=== PATIENT | female | born 1980 | race African-American/Black ===

== ENCOUNTER 2020-07-20 13:37 | Outpatient (REF) | payer OTHER, SELFPAY | END 2020-07-20 13:38 | disposition home or self-care (01) | LOC: HO.LAB 13:37 | PROVIDERS: Visit Provider Internal Medicine | DX: Z20.822 Contact with and (suspected) exposure to COVID-19 (principal) | CPT/HCPCS: C9803; U0003; U0005 ==

== ENCOUNTER 2023-03-03 08:31 | Emergency (ER) | payer OTHER, SELFPAY ==
[2023-03-03 08:37] VITALS: BP 183/118; PULSE 97; RESP 20; TEMP 36.3; O2SAT 98; BMI 29.3
[2023-03-03 11:49] LABS: Appearance Urine Cloudy; Color Urine Yellow; Glucose Urine UA Negative (Negative); Leukocyte Esterase Urine Trace (Negative); Nitrite Urine Negative (Negative); Specific Gravity - Urine 1.025 (1.005-1.025); UMIC TRIGGER UACC YES; Urine Blood Negative (Negative); Urine Ketones Negative (Negative); Urine Protein Trace mg/dL (Neg-Trace)
[2023-03-03 12:06] LABS: Bacteria Urine None Seen (None Seen); RBC Urine 0-2 /HPF (0-2); UACC Culture Trigger YES
--- NOTE | 2023-03-03 12:42 | ED_ITS ---
HPI - General Adult General Chief complaint: General Medical Stated complaint: many issues will tell doctor Time Seen by Provider: 03/03/23 11:15 History of Present Illness HPI narrative: Patient with 2 complaints, 1st complaint is 2 days of blisters in mouth that make it painful to eat, she is able to drink easily, there are no other accompanying symptoms there is no sore throat no runny nose no cough no fever She also complains of several days of dysuria meaning frequent urination and some discomfort suprapubic with urination, denies any flank pain, denies any nausea or vomiting denies any fever Related Data Previous Rx's Medication Instructions Recorded acetaminophen 500 mg tablet 1,000 mg (2 x 500 mg) PO QID PRN 03/03/23 pain #30 tabs dyclonine 2 mg lozenges 2 mg mucous membrane Q1H PRN mouth 03/03/23 pain #18 ea lidocaine HCl 2 % mucosal solution 5 ml mucous membrane QID PRN mouth 03/03/23 (Lidocaine Viscous) pain #100 mL nitrofurantoin 100 mg PO Q12H 5 days #10 caps 03/03/23 monohydrate/macrocrystals 100 mg capsule (Macrobid) oxycodone 5 mg tablet 5 mg PO Q6H PRN pain #7 tabs 03/03/23 phenazopyridine 200 mg tablet 200 mg PO TID Discomfort with 03/03/23 (Pyridium) urination 6 doses #6 tabs Allergies Allergy/AdvReac Type Severity Reaction Status Date / Time No Known Allergies Allergy Unverified 12/02/19 19:15 [No Known Allergies*] [facility] Past Medical History Source: nursing notes reviewed Social History Social History Advance Directives: No Advance Directives Information Provided: No Physical Exam ED Vital Signs: Vital Signs - 24 hr 03/03/23 08:37 03/03/23 12:57 Temperature 97.3 F 98.2 F Pulse Rate 97 94 Respiratory Rate 20 18 Blood Pressure 183/118 H 214/118 H Pulse Oximetry 98 100 Oxygen Delivery Method Room Air Room Air BMI result Body Mass Index 29.3 General appearance no acute distress, no respiratory distress speaking full sentences no drooling Eyes no redness or discharge The sinuses are not congested or tender The pharynx is clear without redness swelling or exudate, membranes are moist Mouth exam there are no obvious ulcerations, there is some red raised areas, no exudate, consistent with canker sores, no impairment of breathing and swallowing no drooling no trismus, voice is normal Neck is supple Chest is clear Extremities full range of motion x4 Skin no rash Course Course Course Narrative: Patient's blood pressure was noted to be elevated, she has no symptoms of a hypertensive emergency there is no stroke symptoms no chest pain no shortness of breath no headache no weakness CBC and chemistry were checked, renal function is normal no acute abnormalities A reading of 214/118 was taken by automatic Cuff, I checked this manually in both arms and the right arm was 192 over 98, and left arm was 188/98, similar in both arms This was discussed with attending Dr. patino who agreed with the patient in pain and possibly stressed in the hospital we would not start anything right now today She will get a home blood pressure cuff and keep a log of the readings and will go to primary care for further evaluation for possible high blood pressure, but she is in pain now from her blisters and I did not start anything now as the diagnosis will need confirmation The urine was contaminated, showed some white cells but as she is symptomatic with frequency and dysuria I will treat with Macrobid and Pyridium The mouth pain and a small blisters are likely cold sores and likely viral, she will be treated with lidocaine liquid and pain medication Otherwise well-appearing patient is discharged Medical Decision Making Lab Data MDM Lab Attestation statement: I reviewed the patient's lab results. 03/03/23 13:18 03/03/23 13:18 Labs: Lab Results 03/03/23 03/03/23 Range/Units 11:41 13:18 WBC 5.2 (4.8-10.8) X10*3/uL RBC 4.58 (4.20-5.50) X10*6/uL Hgb 12.6 (12.0-16.0) g/dl Hct 38.1 (37.0-47.0) % MCV 83.2 (80.0-98.0) fL MCH 27.5 (27.0-33.0) pg MCHC 33.1 (31.0-35.0) g/dl RDW 14.6 (11.0-16.0) % Plt Count 323 (160-400) X10*3/uL MPV 9.7 (9.4-12.3) fL Immature Gran % (Auto) 0.2 (0.0-0.4) % Neut % (Auto) 34.3 L (45-73) % Lymph % (Auto) 53.8 H (20-40) % [place] % (Auto) 8.2 (2-11) % Eos % (Auto) 2.1 (0-4) % Baso % (Auto) 1.4 (0-2) % Lymph # (Auto) 2.8 (1.2-4.9) X10*3/uL [place] # (Auto) 0.4 (0.1-1.2) X10*3/uL Eos # (Auto) 0.1 (0.0-0.4) X10*3/uL Baso # (Auto) 0.1 (0.0-0.2) X10*3/uL Abs Immat Gran (auto) 0.01 (0.00-0.03) X10*3/uL Absolute Neuts (auto) 1.8 L (2.0-8.3) x10*3/uL Absolute Nucleated RBC 0.000 (0.0-0.012) X10*3/uL Nucleated RBC % (auto) 0.0 (0.0-0.2) /100WBC Sodium 141 (135-145) mmol/L Potassium 4.2 (3.3-5.1) mmol/L Chloride 107 (96-108) mmol/L Carbon Dioxide 24 (22-29) mmol/L Anion Gap 14 (12-20) BUN 7 L (9-16) mg/dL Creatinine 0.72 (0.5-1.4) mg/dL Estim Creat Clear Calc 95.9 Estimated GFR > 60 Random Glucose 80 (60-115) mg/dL Calcium 8.9 (8.4-10.2) mg/dL Total Bilirubin 0.3 (0.0-1.0) mg/dL Direct Bilirubin 0.1 (0.0-0.5) mg/dL AST 34 H (5-31) U/L ALT 28 (0-31) U/L Alkaline Phosphatase 87 (39-117) U/L Total Protein 7.6 (6.5-8.0) g/dL Albumin 4.1 (3.5-5.0) g/dL Urine Color Yellow Urine Appearance Cloudy Urine pH 5.0 (5.0-9.0) Ur Specific [place] 1.025 (1.005-1.025) Urine Protein Trace (Neg-Trace) mg/dL Urine Glucose (UA) Negative (Negative) mg/dL Urine Ketones Negative (Negative) mg/dL Urine Blood Negative (Negative) Urine Nitrite Negative (Negative) Ur Leukocyte Esterase Trace H (Negative) Urine RBC 0-2 (0-2) /HPF Urine WBC 6-10 H (0-5) /HPF Ur Squamous Epith Cells 11-20 (0-2) /HPF Urine Bacteria None Seen (None Seen) Hyaline Casts 3-5 (0-2) /LPF Discharge Plan Discharge Clinical Impression: Canker sores oral, Hypertension, UTI (urinary tract infection) Patient Disposition: Home, Self-Care Additional Instructions: We were concerned about your blood pressure 190/90, so likely have high blood pressure but because you are in pain now and because some people get nervous in the hospital were not starting anything right now Best plan is to get a home blood pressure cuff, inexpensive at [facility] or [facility] or any pharmacy and keep a log of blood pressure readings once or twice a day for week Make an appointment with primary care doctor to be evaluated for high blood pressure If high blood pressure is ignored it can cause kidney problems blindness heart attacks strokes and many many problems so it is very important to control blood pressure Today your labs were normal For the cold sores I wrote for some liquid treatments as well as pain medication, if they get worse or any worse condition or return return to the ER any time For urinary tract infection I wrote for Macrobid and Pyridium, Macrobid is antibiotic, Pyridium helps with pain from urine infections Return any time for fever vomiting worsening pain any worse condition or any concerns Prescriptions: New lidocaine HCl [Lidocaine Viscous] 2 % solution 5 ml mucous membrane QID PRN (Reason: mouth pain) Qty: 100 0RF Rx Instructions: Rinse and spit dyclonine 2 mg lozenge 2 mg mucous membrane Q1H PRN (Reason: mouth pain) Qty: 18 0RF Rx Instructions: do not exceed 10 truman per day nitrofurantoin monohyd/m-cryst [Macrobid] 100 mg capsule 100 mg PO Q12H 5 Days Qty: 10 0RF Rx Instructions: must administer with a meal/food phenazopyridine [Pyridium] 200 mg tablet 200 mg PO TID Qty: 6 0RF acetaminophen 500 mg tablet 1,000 mg PO QID PRN (Reason: pain) Qty: 30 0RF oxycodone 5 mg tablet 5 mg PO Q6H PRN (Reason: pain) Qty: 7 0RF Rx Instructions: Partial Fill upon patient request. Stand Alone Forms: Work/School Release
[2023-03-03 12:57] VITALS: BP 214/118; PULSE 94; RESP 18; TEMP 36.8; O2SAT 100
[2023-03-03 13:22] LABS: MANUAL DIFF FLAG NO
[2023-03-03 13:39] LABS: Basophils Absolute Auto 0.1 X10*3/uL (0.0-0.2); Basophils Percent Auto 1.4 % (0-2); Eosinophils Absolute Auto 0.1 X10*3/uL (0.0-0.4); Eosinophils Percent Auto 2.1 % (0-4); Hematocrit 38.1 % (37.0-47.0); Hemoglobin 12.6 g/dl (12.0-16.0); Imm Gran Abs Auto 0.01 X10*3/uL (0.00-0.03); Imm Gran Pct Auto 0.2 % (0.0-0.4); Lymphocytes Absolute Auto 2.8 X10*3/uL (1.2-4.9); Lymphocytes Percent Auto 53.8 % (20-40); Mean Corpuscular HGB Conc 33.1 g/dl (31.0-35.0); Mean Corpuscular Hemoglobin 27.5 pg (27.0-33.0); Mean Corpuscular Volume 83.2 fL (80.0-98.0); Mean Platelet Volume 9.7 fL (9.4-12.3); Monocytes Absolute Auto 0.4 X10*3/uL (0.1-1.2); Monocytes Percent Auto 8.2 % (2-11); Neutrophils Absolute Auto 1.8 x10*3/uL (2.0-8.3); Neutrophils Percent Auto 34.3 % (45-73); Platelet Count 323 X10*3/uL (160-400); Red Blood Count 4.58 X10*6/uL (4.20-5.50); Red Cell Distribution Width 14.6 % (11.0-16.0); White Blood Count 5.2 X10*3/uL (4.8-10.8)
[2023-03-03 13:43] LABS: Alanine Aminotransferase 28 U/L (0-31); Albumin Level 4.1 g/dL (3.5-5.0); Alkaline Phosphatase 87 U/L (39-117); Anion Gap 14 (12-20); Aspartate Amino Transferase 34 U/L (5-31); Bilirubin Direct 0.1 mg/dL (0.0-0.5); Bilirubin Total 0.3 mg/dL (0.0-1.0); Blood Urea Nitrogen 7 mg/dL (9-16); Calcium 8.9 mg/dL (8.4-10.2); Carbon Dioxide 24 mmol/L (22-29); Chloride 107 mmol/L (96-108); Creatinine Clr Calc Pharmacy 95.9; Estimated Glomerular Filt Rate > 60; Glucose Random 80 mg/dL (60-115); Potassium 4.2 mmol/L (3.3-5.1); Sodium 141 mmol/L (135-145); Total Protein 7.6 g/dL (6.5-8.0)
[2023-03-03] MEDS: Nitrofurantoin Monohyd/M-Cryst 100 MG CAPSULE PO (14:19)
[2023-03-03] MEDS: Acetaminophen 325 MG TABLET 975 MG PO (14:19)
== END 2023-03-03 14:25 | disposition home or self-care (01) ==
PROVIDERS: Physician Assistant Medical; Emergency Provider Emergency Medicine
DX: K12.0 Recurrent oral aphthae (principal); N39.0 Urinary tract infection, site not specified; I10 Essential (primary) hypertension; Z79.899 Other long term (current) drug therapy
CPT/HCPCS: 36415; 80048; 80076; 81001; 85025; 87086; 99283